=== PATIENT | female | born 1965 | race Caucasian/White ===

== ENCOUNTER 2019-07-24 18:36 | Observation (INO) ==
[2019-07-24] MEDS ORDERED: ZOFRAN INJ 4 MG VIAL IVP ONE (19:07)
[2019-07-24] MEDS ORDERED: MORPHINE SULFATE INJ 2 MG INJ IVP ONE (19:07)
--- NOTE | 2019-07-24 19:19 | ED.ABDFE ---
HPI <Ellen Solitario - Last Filed: 07/25/19 08:15> Time Seen Time Seen by Provider: 07/24/19 18:58 PCP Primary Care Physician: MARJAN Complaint Doctors Chief Complaint Comments: 54 year old female c/o severe RLQ pain. There has also been right flank pain. The pain has been present for the past two weeks. There has been occasional nausea. no emesis. Chief Complaint:: PT IN ED VIA SHEELCHAIR WITH C/O RIGHT ABD PAIN. STATES SHE HAS BEEN CONSTIPATED FOR APPROX 2 WEEKS AND HAS TAKEN MULTIPLE MEDS TO MAKE HER BOWELS MOVE WITH ONLY SMALL AMT OF RESULTS. Source History Provided: Patient Mode of arrival Mode of Arrival: Wheelchair Timing Onset of Chief Complaint: 07/10/19 PMH <Ellen Solitario - Last Filed: 07/25/19 08:15> PMH Past Medical History: No Past Medical History Comment: TRACY Past Surgical History: Yes Surgical History: Hysterectomy Family History History of Family Medical Conditions: No Social History Does patient currently use any type of tobacco product: No Have you used tobacco products in the last 12 months: No Type of Tobacco Use: None Does any household member use tobacco: No Do you use any recreational Drugs:: No Lives Where: Home infectious screening In the last 2 months have you had wt loss of >10#?: NO Have you had fever, night sweats or hemotysis?: No Have you traveled outside the country in the last 6 months?: No Isolation: Standard ROS <Ellen Solitario - Last Filed: 07/25/19 08:15> Review of Systems Constitutional: No Symptoms Reported Eyes: No Symptoms Reported ENTM: No Symptoms Reported Respiratoy: No Symptoms Reported Cardiovascular: No Symptoms Reported Gastrointestinal/Abdominal: Abdominal Pain and Other (Pain in the RLQ) Genitourinary: Other (Right Flank Pain) Neurological: No Symptoms Reported Musculoskeletal: No Symptoms Reported All Other Systems: Reviewed and Negative PE <Ellen Solitario - Last Filed: 07/25/19 08:15> Vital Signs Vitals: Temperature 100.1 F Pulse Rate 82 Respiratory Rate 18 Blood Pressure [Left Arm] 116/70 Blood Pressure 123/66 O2 Sat by Pulse Oximetry 97 General Limitations: No Limitations General Appearance: Alert, In No Apparent Distress and Other (Moving about is noted to worsen the RLQ pain) Head Head Exam: Normal Inspection Eyes Eye exam: Normal Appearance ENT ENT Exam: Normal Exam Chest Chest Inspection: Symmetric Chest Wall Rise Respiratory Respiratory Exam: Normal Lung Sounds Bilat Cardiovascular Cardiovascular Exam: Regular Rate and Normal Rhythm Abdominal Exam Abdominal Exam: Soft Abdominal Tenderness: RUQ, RLQ and Moderate Back Back Exam: (R) CVA Tenderness Extremeties Extremities Exam: Full ROM Neurologic Neurological Exam: Alert, Oriented X3 and CN II-XII Intact Psychiatric Psychiatric Exam: Normal Affect and Normal Mood Skin Skin Exam: Warm, Dry and Intact <Monae Guillory - Last Filed: 07/25/19 07:18> Vital Signs Vitals: Temperature 100.1 F Pulse Rate 82 Respiratory Rate 18 Blood Pressure [Left Arm] 116/70 Blood Pressure 123/66 O2 Sat by Pulse Oximetry 97 MDM <Ellen Solitario - Last Filed: 07/25/19 08:15> Differential Diagnosis Differential Diagnosis- Considerations may include:: Appendicitis, Urinary tract infection and Urolithiasis COURSE <Ellen Solitario - Last Filed: 07/25/19 08:15> Treatment Treatment: Morphine 2 mg IV/Zofran 4 mg IV (RUQ and RLQ Pain); 20:50 Feeling somewhat better but still with moderate pain Call to Dr. Peck ( Surgery) <Monae Guillory - Last Filed: 07/25/19 07:18> Consultation Called: 21:19 (Dr Alicea will see pt but wants admitted to medical) Call Returned: 21:20 (Dr Hallman accepts admission.) ROR <Ellen Solitario - Last Filed: 07/25/19 08:15> Labs Reviewed Laboratory Results Reviewed?: Yes Result Diagrams: 07/25/19 05:13 07/25/19 05:13 Laboratory: WBC 12.7 X10^3/uL (3.6-10.0) H 07/24/19 19:45 RBC 5.08 X10^6/uL (3.5-5.4) 07/24/19 19:45 Hgb 14.5 g/dL (12.0-16.0) 07/24/19 19:45 Hct 42.7 % (36.0-47.0) 07/24/19 19:45 MCV 83.9 fL (80.0-100.0) 07/24/19 19:45 MCH 28.6 pg (27.0-34.0) 07/24/19 19:45 MCHC 34.1 g/dL (33.0-35.0) 07/24/19 19:45 RDW 13.8 % (11.6-16.5) 07/24/19 19:45 Plt Count 257 X10^3/uL (150.0-450.0) 07/24/19 19:45 MPV 8.0 fL (7.4-11.0) 07/24/19 19:45 Neut % (Auto) 71.0 % (42.0-75.0) 07/24/19 19:45 Lymph % (Auto) 17.8 % (21.0-51.0) L 07/24/19 19:45 Bay % (Auto) 10.1 % (0.0-13.0) 07/24/19 19:45 Eos % (Auto) 0.2 % (0.9-2.9) L 07/24/19 19:45 Baso % (Auto) 0.9 % (0.2-1.0) 07/24/19 19:45 Neut # (Auto) 9.0 x10^3/uL (2.2-4.8) H 07/24/19 19:45 Lymph # (Auto) 2.3 X10^3/uL (1.3-2.9) 07/24/19 19:45 Bay # (Auto) 1.3 x10^3/uL (0.3-0.8) H 07/24/19 19:45 Eos # (Auto) 0.0 x10^3/uL (0.0-0.2) 07/24/19 19:45 Baso # (Auto) 0.1 X10^3/uL (0.0-0.1) 07/24/19 19:45 Absolute Nucleated RBC 0.1 /100WBC 07/24/19 19:45 Sodium 133 mmol/L (136-145) L 07/24/19 19:45 Corrected Sodium 133 mmol/L (136-145) L 07/24/19 19:45 Potassium 4.0 mmol/L (3.5-5.1) 07/24/19 19:45 Chloride 98 mmol/L (98-107) 02/10/20 19:45 Carbon Dioxide 29.4 mmol/L (21-32) 07/24/19 19:45 BUN 13 mg/dL (7-18) 07/24/19 19:45 Creatinine 0.82 mg/dL (0.55-1.02) 07/24/19 19:45 Est GFR (MDRD) Af Amer > 60 (>60) 07/24/19 19:45 Est GFR (MDRD) Non-Af > 60 (>60) 07/24/19 19:45 Glucose 117 mg/dL (65-99) H 07/24/19 19:45 Calcium 9.4 mg/dL (8.5-10.1) 07/24/19 19:45 Corrected Calcium TNP 07/24/19 19:45 Total Bilirubin 1.50 mg/dL (0.2-1.0) H 07/24/19 19:45 AST 16 Units/L (15-37) 07/24/19 19:45 ALT 23 Units/L (12-78) 07/24/19 19:45 Alkaline Phosphatase 102 Units/L (46-116) 07/24/19 19:45 Total Protein 8.4 g/dL (6.4-8.2) H 07/24/19 19:45 Albumin 3.6 g/dL (3.4-5.0) 07/24/19 19:45 Globulin 4.8 g/dL (2.5-4.5) H 07/24/19 19:45 Albumin/Globulin Ratio 0.8 Ratio (1.1-2.1) L 07/24/19 19:45 Amylase 62 Units/L (25-115) 07/24/19 19:45 Lipase 107 Units/L (73-393) 07/24/19 19:45 <Monae Guillory - Last Filed: 07/25/19 07:18> Labs Reviewed Laboratory: WBC 12.7 X10^3/uL (3.6-10.0) H 07/24/19 19:45 RBC 5.08 X10^6/uL (3.5-5.4) 07/24/19 19:45 Hgb 14.5 g/dL (12.0-16.0) 07/24/19 19:45 Hct 42.7 % (36.0-47.0) 07/24/19 19:45 MCV 83.9 fL (80.0-100.0) 07/24/19 19:45 MCH 28.6 pg (27.0-34.0) 07/24/19 19:45 MCHC 34.1 g/dL (33.0-35.0) 07/24/19 19:45 RDW 13.8 % (11.6-16.5) 07/24/19 19:45 Plt Count 257 X10^3/uL (150.0-450.0) 07/24/19 19:45 MPV 8.0 fL (7.4-11.0) 07/24/19 19:45 Neut % (Auto) 71.0 % (42.0-75.0) 07/24/19 19:45 Lymph % (Auto) 17.8 % (21.0-51.0) L 07/24/19 19:45 Bay % (Auto) 10.1 % (0.0-13.0) 07/24/19 19:45 Eos % (Auto) 0.2 % (0.9-2.9) L 07/24/19 19:45 Baso % (Auto) 0.9 % (0.2-1.0) 07/24/19 19:45 Neut # (Auto) 9.0 x10^3/uL (2.2-4.8) H 07/24/19 19:45 Lymph # (Auto) 2.3 X10^3/uL (1.3-2.9) 07/24/19 19:45 Bay # (Auto) 1.3 x10^3/uL (0.3-0.8) H 07/24/19 19:45 Eos # (Auto) 0.0 x10^3/uL (0.0-0.2) 07/24/19 19:45 Baso # (Auto) 0.1 X10^3/uL (0.0-0.1) 07/24/19 19:45 Absolute Nucleated RBC 0.1 /100WBC 07/24/19 19:45 Sodium 133 mmol/L (136-145) L 07/24/19 19:45 Corrected Sodium 133 mmol/L (136-145) L 07/24/19 19:45 Potassium 4.0 mmol/L (3.5-5.1) 07/24/19 19:45 Chloride 98 mmol/L (98-107) 07/24/19 19:45 Carbon Dioxide 29.4 mmol/L (21-32) 07/24/19 19:45 BUN 13 mg/dL (7-18) 07/24/19 19:45 Creatinine 0.82 mg/dL (0.55-1.02) 07/24/19 19:45 Est GFR (MDRD) Af Amer > 60 (>60) 07/24/19 19:45 Est GFR (MDRD) Non-Af > 60 (>60) 07/24/19 19:45 Glucose 117 mg/dL (65-99) H 07/24/19 19:45 Calcium 9.4 mg/dL (8.5-10.1) 07/24/19 19:45 Corrected Calcium TNP 07/24/19 19:45 Total Bilirubin 1.50 mg/dL (0.2-1.0) H 07/24/19 19:45 AST 16 Units/L (15-37) 07/24/19 19:45 ALT 23 Units/L (12-78) 07/24/19 19:45 Alkaline Phosphatase 102 Units/L (46-116) 07/24/19 19:45 Total Protein 8.4 g/dL (6.4-8.2) H 07/24/19 19:45 Albumin 3.6 g/dL (3.4-5.0) 07/24/19 19:45 Globulin 4.8 g/dL (2.5-4.5) H 07/24/19 19:45 Albumin/Globulin Ratio 0.8 Ratio (1.1-2.1) L 07/24/19 19:45 Amylase 62 Units/L (25-115) 07/24/19 19:45 Lipase 107 Units/L (73-393) 07/24/19 19:45 Opioid <Ellen Solitario - Last Filed: 07/25/19 08:15> Opioid Risk Tool Age (Suman box if 16-45): No History of Preadolescent Sexual Abuse: No Total: 0 Total Score Risk Category: Low Risk Copyright: Trung KING predicting aberrant behaviors <Monae Guillory - Last Filed: 07/25/19 07:18> Opioid Risk Tool Total: 0 Total Score Risk Category: Low Risk <Ellen Solitario - Last Filed: 07/25/19 08:15> Diagnosis Discharge Problem: Cholecystitis, Lymphocytosis Instructions Instructions: Cholecystitis Forms: Excuse From Work Patient Portal
[2019-07-24] MEDS ORDERED: ZOFRAN INJ 4 MG VIAL ONE (19:33)
[2019-07-24] MEDS ORDERED: MORPHINE SULFATE INJ 2 MG INJ ONE (19:34)
[2019-07-24 19:56] LABS: BASOPHILS # (AUTO) 0.1 X10^3/uL (0.0-0.1); BASOPHILS % (AUTO) 0.9 % (0.2-1.0); EOSINOPHILS % (AUTO) 0.2 % (0.9-2.9); HEMATOCRIT 42.7 % (36.0-47.0); HEMOGLOBIN 14.5 g/dL (12.0-16.0); LYMPHOCYTES # (AUTO) 2.3 X10^3/uL (1.3-2.9); LYMPHOCYTES % (AUTO) 17.8 % (21.0-51.0); MEAN CORPUSCULAR HEMOGLOBIN 28.6 pg (27.0-34.0); MEAN CORPUSCULAR HGB CONC 34.1 g/dL (33.0-35.0); MEAN CORPUSCULAR VOLUME 83.9 fL (80.0-100.0); MONOCYTES # (AUTO) 1.3 x10^3/uL (0.3-0.8); MONOCYTES % (AUTO) 10.1 % (0.0-13.0); PLATELET COUNT 257 X10^3/uL (150.0-450.0); RED BLOOD COUNT 5.08 X10^6/uL (3.5-5.4); RED CELL DISTRIBUTION WIDTH 13.8 % (11.6-16.5); WHITE BLOOD COUNT 12.7 X10^3/uL (3.6-10.0)
[2019-07-24 20:11] LABS: ALANINE AMINOTRANSFERASE 23 Units/L (12-78); ALBUMIN 3.6 g/dL (3.4-5.0); ALKALINE PHOSPHATASE 102 Units/L (46-116); AMYLASE 62 Units/L (25-115); ASPARTATE AMINO TRANSFERASE 16 Units/L (15-37); BLOOD UREA NITROGEN 13 mg/dL (7-18); CALCIUM 9.4 mg/dL (8.5-10.1); CARBON DIOXIDE 29.4 mmol/L (21-32); CHLORIDE 98 mmol/L (98-107); COR NA(FOR HYPERGLY) 133 mmol/L (136-145); CREATININE 0.82 mg/dL (0.55-1.02); LIPASE 107 Units/L (73-393); SODIUM 133 mmol/L (136-145); TOTAL PROTEIN 8.4 g/dL (6.4-8.2); eGFR NON BLACK RACES > 60 (>60)
--- NOTE | 2019-07-24 20:12 | CT ---
HISTORYRIGHT SIDE PAINSTUDYABDOMEN/PELVIS W/O CONCOMPARISONNoneTECHNIQUEMultiple axial images of the abdomen and pelvis were obtained from the lung bases to the pubic symphysis without the administration of IV contrast. Dose reduction techniques including Automated Exposure Control (AEC) and adjustment of mA and kV were utilized.FINDINGSThe visualized portions of the lung bases are unremarkable. The liver, spleen, pancreas, adrenals, and kidneys are grossly unremarkable in appearance given the limitations of this noncontrast exam. No CT evidence of hydronephrosis is identified. At least one stone is noted within the gallbladder. The gallbladder is distended with suspected wall thickening and adjacent inflammatory change. Cholecystitis cannot be excluded and may be further evaluated with ultrasound as clinically indicated. The appendix is not definitely visualized. No significant inflammatory changes are appreciated within the right lower quadrant. Evaluation of the stomach, small bowel, and colon is limited without oral contrast. A small hiatal hernia is noted.IMPRESSIONFindings suspicious for cholecystitis as discussed above. Correlate clinically.Electronically signed by: KIRSTEN HALEY (Jul 24, 2019 20:11:19)
--- NOTE | 2019-07-24 20:47 | RAD ---
HISTORYPRE OPSTUDYCHEST, 1 VIEWCOMPARISONNoneFINDINGSThe heart is normal. The pulmonary vessels are normal. The lungs are mildly hyperinflated and emphysematous. No consolidation or effusion is seenIMPRESSIONCOPD with no acute pulmonary abnormality.Electronically signed by: ALINA VALLADARES (Jul 24, 2019 20:45:31)
[2019-07-24] MEDS ORDERED: MORPHINE SULFATE INJ 2 MG INJ IVP PRN (21:28)
[2019-07-24] MEDS ORDERED: ZOFRAN INJ 4 MG VIAL IVP PRN (21:28)
[2019-07-24] MEDS ORDERED: ZOSYN VIAL 3.375 GRAMS 3.375 G in NS 100 ML IV + SPIKE MINIBAG* 100 ML IV ONE (21:34)
[2019-07-24] MEDS ORDERED: NS 1000 ML 1,000 ML ONE (21:47)
[2019-07-24 21:49] LABS: BILIRUBIN,URINE 1+ (NEGATIVE); BLOOD/HEMOGLOBIN,URINE 3+ (NEGATIVE); GLUCOSE, URINE NEGATIVE (NEGATIVE); KETONES,URINE 3+ (NEGATIVE); LEUKOCYTE ESTERASE ,URINE 1+ (NEGATIVE); NITRITES,URINE NEGATIVE (NEGATIVE); PROTEIN,URINE 2+ (NEGATIVE); UROBILINOGEN,URINE 1+ (NORMAL)
[2019-07-24 21:51] LABS: APPEARANCE,URINE SLIGHTLY HAZY (CLEAR); COLOR,URINE DARK YELLOW (YELLOW)
[2019-07-24] MEDS ORDERED: ZOSYN VIAL 2.25 GRAMS IV ONE (21:52)
[2019-07-24] MEDS ORDERED: NS 100 ML IV + SPIKE MINIBAG* 100 ML IV ONE (21:52)
[2019-07-24 21:59] LABS: BACTERIA,URINE TRACE /HPF (NEGATIVE); MUCUS,URINE MODERATE /HPF (NEGATIVE); SQUAMOUS EPITHELIAL CELL,UR MODERATE /HPF (NEGATIVE)
[2019-07-24] MEDS: NS 1000 ML 1,000 ML IV SCH (22:04)
[2019-07-24] MEDS: ZOSYN VIAL 2.25 GRAMS 2.25 G in NS 100 ML IV + SPIKE MINIBAG* 100 ML IV SCH ×2 (22:05)
[2019-07-24 23:00] VITALS: BMI 34.3
[2019-07-25 05:31] LABS: ALANINE AMINOTRANSFERASE 55 Units/L (12-78); ALKALINE PHOSPHATASE 122 Units/L (46-116); ASPARTATE AMINO TRANSFERASE 46 Units/L (15-37); BLOOD UREA NITROGEN 12 mg/dL (7-18); CALCIUM 8.7 mg/dL (8.5-10.1); CARBON DIOXIDE 29.1 mmol/L (21-32); CHLORIDE 101 mmol/L (98-107); COR CA(FOR HYPOALB) 9.5 mg/dL (8.5-10.1); CREATININE 0.79 mg/dL (0.55-1.02); SODIUM 135 mmol/L (136-145); eGFR NON BLACK RACES > 60 (>60)
[2019-07-25 05:34] LABS: BASOPHILS % (AUTO) 0.4 % (0.2-1.0); EOSINOPHILS # (AUTO) 0.1 x10^3/uL (0.0-0.2); EOSINOPHILS % (AUTO) 0.5 % (0.9-2.9); HEMATOCRIT 38.4 % (36.0-47.0); LYMPHOCYTES # (AUTO) 2.1 X10^3/uL (1.3-2.9); LYMPHOCYTES % (AUTO) 21.2 % (21.0-51.0); MEAN CORPUSCULAR HEMOGLOBIN 28.7 pg (27.0-34.0); MEAN CORPUSCULAR HGB CONC 33.7 g/dL (33.0-35.0); MEAN CORPUSCULAR VOLUME 85.1 fL (80.0-100.0); MEAN PLATELET VOLUME 8.4 fL (7.4-11.0); MONOCYTES # (AUTO) 1.1 x10^3/uL (0.3-0.8); NEUTROPHILS # (AUTO) 6.7 x10^3/uL (2.2-4.8); NEUTROPHILS % (AUTO) 66.9 % (42.0-75.0); PLATELET COUNT 210 X10^3/uL (150.0-450.0); RED BLOOD COUNT 4.51 X10^6/uL (3.5-5.4); RED CELL DISTRIBUTION WIDTH 13.9 % (11.6-16.5); WHITE BLOOD COUNT 10.1 X10^3/uL (3.6-10.0)
[2019-07-25] MEDS: NS 1000 ML 1,000 ML IV SCH ×3 (05:34→13:56)
[2019-07-25] MEDS: ZOSYN VIAL 2.25 GRAMS 2.25 G in NS 100 ML IV + SPIKE MINIBAG* 100 ML IV SCH ×2 (05:35→13:56)
[2019-07-25] MEDS ORDERED: RHINOCORT ALLERGY NASAL SPRAY ENOSTRIL SCH (10:00)
[2019-07-25] MEDS ORDERED: NEOSTIGMINE INJ ONE (10:02)
[2019-07-25] MEDS ORDERED: DIPRIVAN VIAL ONE (10:02)
[2019-07-25] MEDS ORDERED: TORADOL 30 MG VIAL ONE (10:02)
[2019-07-25] MEDS ORDERED: QUELICIN (OR ANECTINE) ONE (10:02)
[2019-07-25] MEDS ORDERED: SUPRANE ONE (10:02)
[2019-07-25] MEDS ORDERED: ROBINUL ONE (10:02)
[2019-07-25] MEDS ORDERED: VERSED ONE (10:02)
[2019-07-25] MEDS ORDERED: ZOFRAN INJ 4 MG VIAL ONE (10:02)
[2019-07-25] MEDS ORDERED: NORCURON INJ 10 MG VIAL ONE (10:02)
[2019-07-25] MEDS: FLONASE NASAL SPRAY ENOSTRIL SCH (10:58)
[2019-07-25] MEDS ORDERED: FENTANYL INJ 100 mcg ONE (15:13)
[2019-07-25] MEDS ORDERED: DILAUDID INJ ONE (15:13)
[2019-07-25] MEDS ORDERED: DECADRON INJ ONE (15:13)
[2019-07-25] MEDS ORDERED: NS 100 ML IV 100 ML IV ONE (15:40)
[2019-07-25] MEDS ORDERED: LR 1000 ML IV 1,000 ML IV ONE (15:42)
[2019-07-25] MEDS ORDERED: ANCEF 1 GRAM IV PREMIX* 1 G/50 ML BAG IV ONE (15:51)
[2019-07-25] MEDS ORDERED: BACTROBAN TOPICAL OINT ONE (17:29)
[2019-07-25] MEDS ORDERED: DILAUDID INJ IVP PRN ×2 (17:54→18:02)
[2019-07-25] MEDS ORDERED: ZOFRAN INJ 4 MG VIAL IVP PRN (17:54)
[2019-07-25] MEDS ORDERED: REGLAN INJ 10 MG VIAL IVP PRN (17:54)
[2019-07-25] MEDS ORDERED: PHENERGAN INJ 25 MG IM PRN (17:54)
[2019-07-25] MEDS ORDERED: BENADRYL INJ 50 MG VIAL IVP PRN (17:54)
[2019-07-25] MEDS: D5 1/2 NS 1000 ML 1,000 ML IV SCH (20:44)
[2019-07-25] MEDS: ZOSYN VIAL 3.375 GRAMS 3.375 G in NS 100 ML IV + SPIKE MINIBAG* 100 ML IV SCH ×2 (20:45→21:46)
[2019-07-26] MEDS: D5 1/2 NS 1000 ML 1,000 ML IV SCH (04:08)
[2019-07-26] MEDS: ZOSYN VIAL 3.375 GRAMS 3.375 G in NS 100 ML IV + SPIKE MINIBAG* 100 ML IV SCH (05:08)
[2019-07-26] MEDS: FLONASE NASAL SPRAY ENOSTRIL SCH (09:11)
[2019-07-26 12:05] VITALS: BP 105/52
== END 2019-07-26 12:22 | disposition home or self-care (01) ==
LOC: ER 18:41 → OBS 18:41 → MED/SURG 07-25 18:34
PROVIDERS: ADMIT Obstetrics & Gynecology Obstetrics; ATTEND Obstetrics & Gynecology Obstetrics
DX: R94.31 Abnormal electrocardiogram [ECG] [EKG]; D72.820 Lymphocytosis (symptomatic); K82.A2 Perforation of gallbladder in cholecystitis; K80.01 Calculus of gallbladder with acute cholecystitis with obstruction; K59.09 Other constipation; J44.9 Chronic obstructive pulmonary disease, unspecified; R10.31 Right lower quadrant pain
CPT/HCPCS: 36415; 71010; 71045; 74176; 80053; 81001; 82150; 83690; 85025; 87040; 93005; 94760; 96360; 96361; 96365; 96374; 96375; 99284; A4216; A4222; G0378; J0330; J0690; J1100; J1170; J1885; J2250; J2270; J2405; J2543; J2704; J2710; J3010; J3490; J7030; J7050; J7120; S5010